=== PATIENT | male | born 1990 | race Asian ===

== ENCOUNTER 2017-11-27 14:37 | Emergency (ER) | payer SELFPAY, OTHER | END 2017-11-27 19:16 | disposition home or self-care (01) | LOC: FTE 19:16 | DX: S09.302A Unspecified injury of left middle and inner ear, initial encounter (principal); X58.XXXA Exposure to other specified factors, initial encounter; Y92.9 Unspecified place or not applicable | CPT/HCPCS: 70450; 99284-25 ==